=== PATIENT | male | born 1930 | race Two or more races ===

== ENCOUNTER → 2019-04-02 | Emergency (ER) | payer OTHER ==
[~2019-04-02] VITALS: Ht 167.6 cm; Wt 72.6 kg
[~2019-04-02] MED LIST: NEURONTIN300 MG
== END | disposition left against medical advice (07) ==
LOC: ER 16:08
DX: S60.052A Contusion of left little finger without damage to nail, initial encounter (principal); W23.0XXA Caught, crushed, jammed, or pinched between moving objects, initial encounter; Y93.89 Activity, other specified; Y92.098 Other place in other non-institutional residence as the place of occurrence of the external cause; Y99.8 Other external cause status

== ENCOUNTER 2020-07-09 08:18 | Emergency (ER) | payer OTHER ==
[~2020-07-09] VITALS: Ht 167.6 cm; Wt 83.9 kg
[2020-07-09] MEDS ORDERED: ZESTRIL10 M1 (08:40)
== END 2020-07-09 16:24 | disposition home or self-care (01) ==
LOC: ER 08:18
DX: N39.0 Urinary tract infection, site not specified (principal); I95.89 Other hypotension; S70.01XA Contusion of right hip, initial encounter; R53.1 Weakness; R50.9 Fever, unspecified; R53.81 Other malaise; B96.29 Other Escherichia coli [E. coli] as the cause of diseases classified elsewhere; R31.29 Other microscopic hematuria; W01.198A Fall on same level from slipping, tripping and stumbling with subsequent striking against other object, initial encounter; Y93.89 Activity, other specified; Y92.018 Other place in single-family (private) house as the place of occurrence of the external cause; Y99.8 Other external cause status